=== PATIENT | female | born 1990 | race Caucasian/White ===

== ENCOUNTER 2016-04-25 23:32 | Inpatient (IN) | payer BC, OTHER ==
[2016-04-26] MEDS ORDERED: SODIUM CHLORIDE 0.9% 1000ML 1,000 ML IV ONE (00:12)
[2016-04-26] MEDS ORDERED: SODIUM CHLORIDE 0.9% 500 ML 500 ML IV ONE (00:12)
[2016-04-26 00:44] LABS: APPEARANCE,URINE Clear; BILIRUBIN,URINE NEGATIVE (NEGATIVE); COLOR,URINE Yellow; GLUCOSE, URINE (UA) NEGATIVE (NEGATIVE); KETONES,URINE NEGATIVE (NEGATIVE); LEUKOCYTE ESTERASE ,URINE NEGATIVE (NEGATIVE); NITRATE,URINE NEGATIVE (NEGATIVE); OCCULT BLOOD,URINE NEGATIVE (NEG-TRACE); UROBILINOGEN,URINE 0.2 (0.2-1.0 EU)
[2016-04-26] MEDS: SODIUM CHLORIDE 0.9% 1000ML 1,000 ML IV SCH ×3 (00:44→18:38)
[2016-04-26 00:52] LABS: RBC,URINE 0-1 (0-3AV/HPF); WBC,URINE 0-2 (0-5AV/HPF)
[2016-04-26] MEDS: SODIUM CHLORIDE 0.9% FLUSH 10 ML SOL IV SCH ×3 (01:32→18:38)
[2016-04-26] MEDS ORDERED: ACETAMINOPHEN 500 MG 500 MG TAB PO ONE (02:25)
[2016-04-26] MEDS: LACTATED RINGERS 2,000 ML IV SCH ×2 (07:05→10:59)
[2016-04-26] MEDS ORDERED: CITRIC ACID/SODIUM CITRATE SOL PO ONE (07:13)
[2016-04-26] MEDS ORDERED: SODIUM CHLORIDE 0.9% 50 ML 25 ML IV PRN (07:13)
[2016-04-26 07:36] LABS: BASOPHILS % (AUTO) 1 % (0-3); EOSINOPHILS % (AUTO) 5 % (0-9); HEMATOCRIT 36 % (35-47); MEAN CORPUSCULAR HGB CONC 34.3 gm/dl (32.0-36.0); MONOCYTES % (AUTO) 8.2 % (0-12); NEUTROPHILS % (AUTO) 62.6 % (37-80)
[2016-04-26] MEDS ORDERED: MORPHINE SULFATE 0.5 MG/ML SOL ONE (07:36)
[2016-04-26] MEDS ORDERED: CEFAZOLIN SODIUM 1 GM PDS IV ONE (07:48)
[2016-04-26 08:12] LABS: ABO O; RH TYPE Positive
[2016-04-26] MEDS ORDERED: OXYTOCIN 10000 MU/ML SOL ONE ×4 (08:12)
[2016-04-26] MEDS ORDERED: EPHEDRINE SULFATE 50 MG/ML SOL ONE (08:12)
[2016-04-26] MEDS ORDERED: ONDANSETRON HCL 4 MG/2 ML SOL ONE (08:12)
[2016-04-26] MEDS ORDERED: CEFAZOLIN SODIUM 1 GM PDS ONE ×2 (08:12→14:32)
[2016-04-26 08:18] LABS: ANTIBODY SCREEN Negative
[2016-04-26] MEDS ORDERED: METOCLOPRAMIDE HYDROCHLORIDE 5 MG/ML SOL ONE (08:19)
[2016-04-26] MEDS ORDERED: BENZOCAINE/MENTHOL 1 SPR TOP PRN (08:52)
[2016-04-26] MEDS ORDERED: DIPHENHYDRAMINE 25 MG CAP PO PRN (08:52)
[2016-04-26] MEDS ORDERED: BISACODYL 10 MG SUP PR PRN (08:52)
[2016-04-26] MEDS ORDERED: METHYLERGONOVINE MALEATE 0.2 MG TAB PO PRN (08:52)
[2016-04-26] MEDS ORDERED: FLEET ENEMA PR PRN (08:52)
[2016-04-26] MEDS ORDERED: KETOROLAC TROMETHAMINE 30 MG/ML SOL IV PRN (08:52)
[2016-04-26] MEDS ORDERED: TEMAZEPAM 15MG 15 MG CAP PO PRN (08:52)
[2016-04-26] MEDS ORDERED: ONDANSETRON HCL 4 MG/2 ML SOL IV PRN (08:52)
[2016-04-26] MEDS ORDERED: WITCH HAZEL 1 EA PAD TOP PRN (08:52)
[2016-04-26] MEDS: CEFAZOLIN SODIUM 1 GM PDS 1 GM in SODIUM CHLORIDE 0.9% 100 ML 100 ML IV SCH ×2 (09:08→14:42)
[2016-04-26] MEDS: DOCUSATE SODIUM 100 MG SGL PO SCH ×2 (11:00→20:26)
[2016-04-26] MEDS: APAP/HYDROCODONE 325/5 TAB PO PRN ×2 (12:38→20:26)
[2016-04-26] MEDS: LACTATED RINGERS 1,000 ML IV SCH ×2 (14:43→14:44)
[2016-04-26] MEDS: IBUPROFEN 600 MG TAB PO PRN (15:23)
[2016-04-27] MEDS: IBUPROFEN 600 MG TAB PO PRN ×3 (00:45→17:54)
[2016-04-27] MEDS: LACTATED RINGERS 1,000 ML IV SCH (00:46)
[2016-04-27] MEDS: SODIUM CHLORIDE 0.9% FLUSH 10 ML SOL IV SCH ×3 (01:03→17:30)
[2016-04-27] MEDS: APAP/HYDROCODONE 325/5 TAB PO PRN ×4 (06:28→23:10)
[2016-04-27] MEDS: DOCUSATE SODIUM 100 MG SGL PO SCH ×2 (08:53→20:45)
[2016-04-28] MEDS: APAP/HYDROCODONE 325/5 TAB PO PRN ×4 (04:49→23:47)
[2016-04-28] MEDS: LACTATED RINGERS 1,000 ML IV SCH (06:46)
[2016-04-28] MEDS: DOCUSATE SODIUM 100 MG SGL PO SCH ×2 (08:11→21:26)
[2016-04-28] MEDS: IBUPROFEN 600 MG TAB PO PRN ×2 (08:11→15:21)
[2016-04-29] MEDS: IBUPROFEN 600 MG TAB PO PRN ×2 (03:36→09:23)
[2016-04-29] MEDS: APAP/HYDROCODONE 325/5 TAB PO PRN (07:33)
[2016-04-29 07:51] VITALS: BP 122/82; PULSE 80; RESP 12; TEMP 97.8; O2SAT 96
[2016-04-29] MEDS: DOCUSATE SODIUM 100 MG SGL PO SCH (09:23)
== END 2016-04-29 13:00 | disposition home or self-care (01) | DRG 540 ==
LOC: OBSVTOIN 23:32 → OB 23:32
PROVIDERS: ADMIT Family Medicine; ATTEND Family Medicine
PROC: 10D00Z1 Extraction of Products of Conception, Low, Open Approach (ICD-10-PCS; principal; 2016-04-26 07:36)
DX: O34.219 Maternal care for unspecified type scar from previous cesarean delivery (principal); Z37.0 Single live birth; Z3A.38 38 weeks gestation of pregnancy
CPT/HCPCS: 36415; 59025; 81001; 85018; 85025; 86850; 86900; 86901; 99070; J0690; J2275; J2405; J2590; J2765